=== PATIENT | female | born 1955 | race Caucasian/White ===

== ENCOUNTER → 2016-08-07 | Outpatient (CLI) | payer OTHER ==
[~2016-08-07] MED LIST: CALC500C3 PO; OXYC-57 PO; SIMV40TA2 PO
--- NOTE | 2016-08-07 09:58 | DIAGNOSTIC IMAGING REPORT ---
Limited abdominal ultrasound ABDOMEN FOR HERNIA CLINICAL HISTORY: K46.9 Abdominal hernia Patient is to drink at least 16 oz of water hernia TECHNIQUE: Ultrasound COMPARISON STUDY: None FINDINGS: Medially superior to the umbilicus is a partially reducible fat-containing hernia. Medially adjacent to the umbilicus is a second fat-containing partially reducible hernia. There is no evidence of bowel containment. There is no evidence for bowel incarceration IMPRESSION: Fat-containing anterior abdominal wall hernias superior and immediately adjacent to the umbilicus. These are partially reducible. No evidence of bowel containment Electronically signed by: Rito Wynne M.D. 08/07/2016 9:56 AM Dictated Date/Time: 08/07/2016 9:54 AM
== END | disposition home or self-care (01) ==
LOC: C.ULTR 09:09
PROVIDERS: ATTEND Surgery
DX: K46.9 Unspecified abdominal hernia without obstruction or gangrene (principal)

== ENCOUNTER → 2016-09-05 | Outpatient (CLI) | payer OTHER ==
--- NOTE | 2016-09-05 15:19 | MAMMOGRAPHY REPORT ---
BILATERAL DIGITAL SCREENING MAMMOGRAM WITH CAD: 09/05/2016 CLINICAL HISTORY: Routine screening. Patient has no complaints. TECHNIQUE: Current study was also evaluated with a Computer Aided Detection (CAD) system. Bilatera l CC and MLO views were obtained. COMPARISON: Comparison is made to exams dated: 09/04/2015 mammogram - [facility], 08/15/2014 mammogram - [facility], 07/21/2013 mammogram, 06/29/2012 mammogram, 06/26/2011 mammo gram, and 06/07/2010 mammogram - [facility]. BREAST COMPOSITION: There are scattered areas of fibroglandular density in both breasts. FINDINGS: No suspicious masses, calcifications, or areas of architectural distortion are noted in e ither breast. There has been no significant interval change compared to prior exams. Left lateral b reast asymmetries are stable compared to prior exams including the 2006 exam. IMPRESSION: ACR BI-RADS CATEGORY 2: BENIGN There is no mammographic evidence of malignancy. A 1 year screening mammogram is recommended. The p atient will receive written notification of the results. Approximately 10% of breast cancers are not detected with mammography. A negative mammographic repor t should not delay biopsy if a clinically suggestive mass is present. Rosaura Vital M.D. ah/:09/05/2016 12:34:00 Carcass Washer: Lucinda FITZGERALD(R)(M), [facility] letter sent: Normal 1/2 BI-RADS Code: ACR BI-RADS Category 2: Benign
== END | disposition home or self-care (01) ==
LOC: C.MAMM 09:45
PROVIDERS: ATTEND Family Medicine
DX: Z12.31 Encounter for screening mammogram for malignant neoplasm of breast (principal)

== ENCOUNTER → 2016-12-18 | Day surgery (SDC) | payer OTHER ==
[2016-12-04 09:38] VITALS: BMI 39.0
[2016-12-04 09:46] LABS: HEMATOCRIT 41.1 % (37-47); MEAN CELL VOLUME 83.4 fL (80-100); MEAN CORPUSCULAR HEMOGLOBIN 27.4 pg (25-34); MEAN CORPUSCULAR HGB CONC 32.8 g/dl (32-36); MEAN PLATELET VOLUME 10.6 fL (7.4-10.4); PLATELET COUNT 218 K/uL (130-400); RED BLOOD COUNT 4.93 M/uL (4.2-5.4); WHITE BLOOD COUNT 4.61 K/uL (4.8-10.8)
[2016-12-04 10:04] LABS: BASO % 0.7 %; BASO ABS # 0.03 K/uL (0-0.2); COMPLETE YES; EOS % 4.1 %; LYMPH % 52.9 %; LYMPH ABS # 2.44 K/uL (1.2-3.4); NEUT % 34.3 %
--- NOTE | 2016-12-04 10:15 | PAT Medication Instructions ---
Service Date Dec 04, 2016. Current Home Medication List Calcium Carbonate (Tums), 1-2 TAB PO PRN Simvastatin (Zocor), 40 MG PO QPM Medication Instructions For Your Scheduled Surgery - Hold the following medications the morning of surgery: Calcium Carbonate (Tums), 1-2 TAB PO PRN - Take the following medications as scheduled the night before surgery: Calcium Carbonate (Tums), 1-2 TAB PO PRN Simvastatin (Zocor), 40 MG PO QPM If you have any questions please call us at [phone] or [phone] or [phone]
--- NOTE | 2016-12-04 10:43 | DIAGNOSTIC IMAGING REPORT ---
CHEST PREADMISSION(PA/LAT) CLINICAL HISTORY: PAT preoperative evaluation COMPARISON STUDY: No previous studies for comparison. FINDINGS: The bones soft tissues and hemidiaphragms are normal. The cardiomediastinal silhouette is normal. The lungs are clear. The pulmonary vasculature is normal. IMPRESSION: Negative chest. Electronically signed by: Rito Wynne M.D. 12/04/2016 10:41 AM Dictated Date/Time: 12/04/2016 10:41 AM
[2016-12-04 11:12] LABS: BUN/CREATININE RATIO 20.6 (10-20); CALCIUM 9.3 mg/dl (8.5-10.1); CREATININE 0.95 mg/dl (0.60-1.20); POTASSIUM 4.1 mmol/L (3.5-5.1)
[~2016-12-18] VITALS: Ht 152.4 cm; Wt 90.5 kg
[~2016-12-18] MED LIST changes: +ATROPINE SULFATE 0.1 MG/ML 5ML SYR IV PRN; +BACITRACIN 50000 UNIT VIAL ONE; +BUPIVACAINE 0.5 % 5 MG/1 ML MPF 30ML VIAL ONE; +DEXAMETHASONE SOD INJ 4 MG/ML VIAL ONE; +EpHEDrine SULFATE INJ 50 MG/ML AMP IV PRN; +FENTANYL CITRATE INJ 50 MCG/1 ML 2 ML VIAL ONE; +GLYCOPYRROLATE INJ 0.2 MG/ML VIAL ONE; +HYDROmorphone INJ 1 MG/ML SYR IV PRN; +LACTATED RINGER'S 1000ML 1,000 ML IV SCH; +LIDOCAINE HCL 2% 2 ML VIAL (20MG/ML) ONE; +MIDAZOLAM HCL 1 MG/ML 2ML VIAL ONE; +MoRPHine SULFATE 2 MG/ML CARP IV PRN; +NEOSTIGMINE METHYLSULFATE 5 MG/5 ML SYR ONE; +ONDANSETRON INJ 2 MG/ML 2 ML VIAL IV PRN; +ONDANSETRON INJ 2 MG/ML 2 ML VIAL ONE; +OXYCODONE/ACETAMINOPHEN 5-325 TAB ONE; +OXYCODONE/ACETAMINOPHEN 5-325 TAB PO PRN; +PROMETHAZINE HCL INJ 12.5 MG in SODIUM CHLORIDE 0.9% 50ML 50 ML IV PRN; +PROPOFOL IV EMULSION 10 MG/ML 20 ML VIAL IV ONE; +ROCURONIUM BROMIDE 10 MG/ML 5 ML VIAL ONE; +SCOPOLAMINE 1.5 MG TDSY TD ONE
[2016-12-18 05:54] VITALS: BP 126/75; PULSE 73; TEMP 36.7; O2SAT 95; Ht 152.4 cm; Wt 90.5 kg
--- NOTE | 2016-12-18 06:31 | History & Physical Bridge Note ---
H&P Re-Evaluation Bridge Note: I have examined the patient, reviewed the History & Physical and in the interval since the performance of the History & Physical I have noted the following changes of clinical significance: No changes noted pt marked, all questions answered, family at bedside
--- NOTE | 2016-12-18 08:23 | [facility] Operative Report ---
Operative Report Operative Date Dec 18, 2016. Pre-Operative Diagnosis ventral hernia Post-Operative Diagnosis Same multiple (at least) incarcerated Procedure(s) Performed Laparoscopic Repair of Incarcerated Multiple Ventral Hernias with Surgimesh Surgeon Dr Robins Lidder Surgeon(s) Mike Bran PA-C Estimated Blood Loss 5ml Findings multiple defects ventral hernias (at least 4) spreading of area of bear 8 cm Specimens none Indications supraumbilical pain and bulge consistent with ventral hernia Description of Procedure or summary dictated confirmation number ([id number]) I attest to the content of the Intraoperative Record and any orders documented therein. Any exceptions are noted below.
--- NOTE | 2016-12-18 08:30 | Discharge Instructions ---
Discharge Instructions Date of Service Dec 18, 2016. Visit Reason for Visit: Abdominal Hernia Discharge Discharge Diagnosis / Problem: laparoscopic hernia repair Discharge Goals Goal(s): Decrease discomfort Activity Recommendations Activity Limitations: as noted below Lifting Limitations: no more than 10 pounds Shower/Bathe: tomorrow Driving or Machine Use: resume 3 days after discharge (if not taking Percocet) Anesthesia . Post Anesthesia Instructions: If you have had General Anesthesia or IV Sedation: * Do not drive today. * Resume driving when surgeon permits. * Do not make important decisions or sign legal documents today. * Call surgeon for: 1. Temperature elevations greater than 101 degrees F. 2. Uncontrollable pain. 3. Excessive bleeding. 4. Persistent nausea and vomiting. 5. Medication intolerance (nausea, vomiting or rash). * For nausea and vomiting use only clear liquids such as: tea, soda, bouillon until nausea subsides, then gradually increase diet as tolerated. * If you have any concerns or questions, call your surgeon's office. If physician is unavailable and it is an emergency, call 911 or go to the nearest emergency room. . Instructions / Follow-Up Instructions / Follow-Up Dr. Robins in 1 week, call [phone] if you do not already have an appt or if you have any questions You may take ibuprofen (600 mg) between Percocet, do not take Tylenol Diet Recommendations Recommended Home Diet: no limitations Procedures Procedures Performed: Laparoscopic Repair of Incarcerated Multiple Ventral Hernias with Surgimesh Pending Studies Studies pending at discharge: no Medical Emergencies . Who to Call and When: Medical Emergencies: If at any time you feel your situation is an emergency, please call 911 immediately. . Non-Emergent Contact Non-Emergency issues call your: Surgeon Call Non-Emergent contact if: you have a fever, temperature is above 101.5, your pain is not controlled, wound has increased pain, you have any medication questions . . "Provider Documentation" section prepared by Mike Bran. . [place] Drug Monitoring Program Search Results: no issues identified
[2016-12-18] MEDS: FENTANYL CITRATE INJ 50 MCG/1 ML 2 ML VIAL IV PRN ×2 (08:40→08:47)
--- NOTE | 2016-12-18 08:54 | OPERATIVE REPORT ---
DATE OF OPERATION: 12/18/2016 SURGEON: Dr. Robins. S[employer] CRM DEVELOPER: Mike Bran PA-C. PREOPERATIVE DIAGNOSIS: Supraumbilical bulge consistent with a ventral hernia. POSTOPERATIVE DIAGNOSIS: Incarcerated ventral hernia with at least 4 defects. Total area spanned about 8 cm. PROCEDURE: Laparoscopic repair of multiple ventral hernias with a 15 cm Surgimesh. SUMMARY: The patient was brought into the operating room theater. The abdomen was prepped with Betadine solution and properly draped. The bulge that we were feeling was supraumbilically, therefore, we made a small transverse incision below the umbilicus sufficient enough to place a Veress needle, followed by CO2, followed by 5 mm trocar. Point of entry inspected and no injury identified except there was some preperitoneal insufflation of air, especially around the umbilical ligament. At this point, we placed a 5 mm right upper quadrant port under direct visualization with preemptive local analgesia 1% Xylocaine, left upper quadrant port similarly placed and a left lower quadrant port. Using these ports, we were able then to first identify that the bulge that we were feeling in the supraumbilical area was incarcerated tissue into the hernial sac which we were able to reduce, this was just the omentum. Once we reduced it free inside the abdomen, then we were able to identify and outline the hernia itself. At this point, we took the liberty and dissected out the round ligament to the point that we got into the muscular fascial planes and we were able to then circumferentially free up all the tissue to the point that we were able then to expose musculofascial planes from above the ventral area that we had seen initially all the way down below the 5 mm trocar that we had placed in the umbilical tissue. Of note, at this time we noted that the patient had besides the larger defect the incarcerated tissue. We dissected out and there were at least 3 other hernias, smaller in caliber. These were all ventrally above the umbilicus. At this point, we outlined the defect itself and it probably seemed to be about 8 cm total diameter. We elected to bring a 15 cm piece of Surgimesh that we put through the umbilical port site under direct visualization, controlled pneumoperitoneum with a towel clip. At this point, we elevated it by its nylon suture and centrally located and used a ProTack to circumferentially overlap the area defect quite considerably, probably about 3-[address]. Once we had completed that, I placed 2 more nylon sutures through the mesh and musculofascial plane, one in north-south position. The area appeared quite secured overlapping. We checked individual trocars, point of entry inspected in all these, and no bleeding identified, and we removed. The wounds were closed with 3-0 Monocryl. Steri-Strips applied. The procedure was tolerated well by the patient and was taken to recovery room in good condition. I attest to the content of the Intraoperative Record and any orders documented therein. Any exceptions are noted below. MTDD
--- NOTE | 2016-12-18 09:04 | Medical Student: [facility] ---
Immediate Operative Summary Operative Date Dec 18, 2016. Pre-Operative Diagnosis Ventral hernia Post-Operative Diagnosis Multiple ventral hernias, some incarcerated Procedure(s) Performed Laparascopic repair of multiple incarcerated ventral hernias with placement of Surgimesh Surgeon Sergio Robins MD Travel Rn Surgeon(s) Mike Bran PA-C Estimated Blood Loss 5cc Findings Multiple incarcerated ventral hernias over an 8x10 cm area Specimens none Anesthesia general Complication(s) None Disposition Recovery Room / PACU
--- NOTE | 2016-12-18 09:07 | Anesthesiology Progress Note ---
Anesthesia Post Op Note Date & Time Dec 18, 2016 at 09:06 Vital Signs Pain Intensity: 1 Vital Signs Past 12 Hours Date Time Temp Pulse Resp B/P (MAP) Pulse Ox O2 Delivery O2 Flow Rate FiO2 12/18/16 09:01 36.7 132/75 12/18/16 09:00 66 14 95 12/18/16 09:00 65 14 12/18/16 08:56 113/55 12/18/16 08:55 67 17 94 12/18/16 08:55 68 17 12/18/16 08:52 128/68 12/18/16 08:50 63 12 100 12/18/16 08:50 63 12 12/18/16 08:49 Room Air 12/18/16 08:47 133/62 12/18/16 08:45 63 9 100 12/18/16 08:45 62 9 12/18/16 08:41 144/90 12/18/16 08:40 69 13 100 12/18/16 08:40 70 13 12/18/16 08:36 140/80 12/18/16 08:30 36.7 84 16 145/82 100 Mask 12/18/16 05:54 36.7 73 20 126/75 (92) 95 Room Air Notes Mental Status: alert / awake / arousable, participated in evaluation Pt Amnestic to Procedure: Yes Nausea / Vomiting: adequately controlled Pain: adequately controlled Airway Patency, RR, SpO2: stable & adequate BP & HR: stable & adequate Hydration State: stable & adequate Anesthetic Complications: no major complications apparent
[2016-12-18 09:15] VITALS: BP 117/71; PULSE 58; TEMP 36.4; O2SAT 98
[2016-12-18 09:45] VITALS: BP 118/70; PULSE 61; TEMP 36.5; O2SAT 96
[2016-12-18 10:15] VITALS: BP 118/68; PULSE 66; TEMP 36.3; O2SAT 93
[2016-12-18 10:45] VITALS: BP_SYST 109; BP_SYST 98; BP_DIAS 62; BP_DIAS 63; PULSE 72; PULSE 74; TEMP 36.5; TEMP 36.8; O2SAT 93; O2SAT 95
== END | disposition home or self-care (01) ==
LOC: C.ACU 05:05
PROVIDERS: ATTEND Surgery
DX: K43.9 Ventral hernia without obstruction or gangrene (principal); M19.90 Unspecified osteoarthritis, unspecified site; K21.9 Gastro-esophageal reflux disease without esophagitis; E78.00 Pure hypercholesterolemia, unspecified; Z82.49 Family history of ischemic heart disease and other diseases of the circulatory system; Z82.3 Family history of stroke; E66.9 Obesity, unspecified; E78.5 Hyperlipidemia, unspecified

== ENCOUNTER → 2017-01-05 | Day surgery (SDC) | payer OTHER ==
[2016-12-04 09:54] VITALS: Ht 152.4 cm; Wt 90.5 kg
[~2017-01-05] VITALS: Ht 152.4 cm; Wt 90.5 kg
[~2017-01-05] MED LIST changes: +500ML BSS 0.3ML EPI 1:1000PF IRRIG ONE; +ACETAMINOPHEN 325 MG TAB PO PRN; +AMVISC PLUS 0.8ML SYRINGE INT OCU ONE; -BACITRACIN 50000 UNIT VIAL ONE; +BRIMONIDINE TART 0.2% OP SOLN PER DROP CHARGE ONE; +BSS FLUSH ONE; -BUPIVACAINE 0.5 % 5 MG/1 ML MPF 30ML VIAL ONE; -DEXAMETHASONE SOD INJ 4 MG/ML VIAL ONE; +ENDOCOAT 0.85ML SYRINGE INT OCU ONE; +EpINEphrine INJ 1MG/ML AMP 1 MG/ML AMP ONE; -FENTANYL CITRATE INJ 50 MCG/1 ML 2 ML VIAL ONE; -GLYCOPYRROLATE INJ 0.2 MG/ML VIAL ONE; -HYDROmorphone INJ 1 MG/ML SYR IV PRN; -LACTATED RINGER'S 1000ML 1,000 ML IV SCH; +LACTATED RINGER'S 1000ML 500 ML IV SCH; +LIDOCAINE 4% OP SOLN DROP CHARGE ONE; +LIDOCAINE 4% OP SOLN DROP CHARGE OPL SCH; +LIDOCAINE HCL 1% MPF 2 ML VIAL ONE; -LIDOCAINE HCL 2% 2 ML VIAL (20MG/ML) ONE; +MOXIFLOXACIN OPH SOLN PER DROP CHARGE ONE; -MoRPHine SULFATE 2 MG/ML CARP IV PRN; -NEOSTIGMINE METHYLSULFATE 5 MG/5 ML SYR ONE; -ONDANSETRON INJ 2 MG/ML 2 ML VIAL ONE; -OXYCODONE/ACETAMINOPHEN 5-325 TAB ONE; -OXYCODONE/ACETAMINOPHEN 5-325 TAB PO PRN; +POVIDONE-IODINE OP SOLN 30 ML BTL ONE; -PROMETHAZINE HCL INJ 12.5 MG in SODIUM CHLORIDE 0.9% 50ML 50 ML IV PRN; +PROPARACAINE 0.5% OP SOLN PER DROP CHARGE OPL SCH; -PROPOFOL IV EMULSION 10 MG/ML 20 ML VIAL IV ONE; -ROCURONIUM BROMIDE 10 MG/ML 5 ML VIAL ONE; -SCOPOLAMINE 1.5 MG TDSY TD ONE; +TOBRAMYCIN/DEXAMETHASONE OPH OINT PER APPLN CHARGE ONE
[2017-01-05] MEDS: PHENYLEPHRINE HCL 2.5% OP SOLN PER DROP CHARGE OPL SCH ×2 (08:11→08:18)
[2017-01-05] MEDS: TROPICAMIDE 1% OP SOLN PER DROP CHARGE OPL SCH ×2 (08:13→08:18)
[2017-01-05] MEDS: KETOROLAC 0.5% OP SOLN PER DROP CHARGE OPL SCH ×2 (08:15→08:20)
[2017-01-05] MEDS: MOXIFLOXACIN OPH SOLN PER DROP CHARGE OPL SCH ×2 (08:16→08:28)
[2017-01-05] MEDS: CYCLOPENTOLATE HCL 1% OP SOLN PER DROP CHARGE OPL SCH ×2 (08:16→08:19)
--- NOTE | 2017-01-05 08:30 | History & Physical Bridge - [place] ---
H&P Re-Evaluation Bridge Note: I have examined the patient, reviewed the History & Physical and in the interval since the performance of the History & Physical I have noted the following changes of clinical significance: No changes noted
--- NOTE | 2017-01-05 09:27 | Discharge Instructions-SurgCtr ---
Discharge Instructions Date of Service Jan 05, 2017. Visit Reason for Visit: Cataract Left Eye Discharge Discharge Diagnosis / Problem: cataract left eye Discharge Goals Goal(s): Improve function Activity Recommendations Activity Limitations: per Instructions/Follow-up section Lifting Limitations: no more than 5 pounds Anesthesia . Post Anesthesia Instructions: If you have had General Anesthesia or IV Sedation: * Do not drive today. * Resume driving when surgeon permits. * Do not make important decisions or sign legal documents today. * Call surgeon for: 1. Temperature elevations greater than 101 degrees F. 2. Uncontrollable pain. 3. Excessive bleeding. 4. Persistent nausea and vomiting. 5. Medication intolerance (nausea, vomiting or rash). * For nausea and vomiting use only clear liquids such as: tea, soda, bouillon until nausea subsides, then gradually increase diet as tolerated. * If you have any concerns or questions, call your surgeon's office. If physician is unavailable and it is an emergency, call 911 or go to the nearest emergency room. . Instructions / Follow-Up Instructions / Follow-Up ACTIVITY RECOMMENDATIONS: * Light activities * You may walk outside, read, watch television. * Mild irritation and blurred vision are common for the first few days, redness around the white part of the eye is common. MEDICATIONS: Resume previous medications unless instructed otherwise by your surgeon. Eye drops (today and tomorrow): Cipro - one drop in operative eye every 2 hours while awake Prednisolone 1% - one drop in operative eye every 2 hours while awake Bromfenac - one drop in operative eye once daily SPECIAL CARE INSTRUCTIONS: * If any problems or concerns, please call Dr. Torres's office at . * Keep plastic shield taped over eye to sleep at night. * Keep plastic shield taped over eye except to administer eye drops. * Keep plastic shield on until office visit the following day. FOLLOW UP VISIT: Follow-up with Dr. Torres in the [place] office as scheduled. If not already scheduled, please call the office at . Diet Recommendations Home Diet: resume previous diet Procedures Procedures Performed: Left Cataract Phacoemulsification With Intraocular Lens Implant, Anterior Vitrectomy Pending Studies Studies pending at discharge: no Medical Emergencies . Who to Call and When: Medical Emergencies: If at any time you feel your situation is an emergency, please call 911 immediately. . Non-Emergent Contact Non-Emergency issues call your: Concrete Plant Laborer . . "Provider Documentation" section prepared by Brendan Torres. .
[2017-01-05 09:28] VITALS: TEMP 36.6
--- NOTE | 2017-01-05 09:31 | [facility] Operative Report ---
Operative Report Operative Date Jan 05, 2017. Pre-Operative Diagnosis Left Eye Cataract Post-Operative Diagnosis same Procedure(s) Performed Left Cataract Phacoemulsification With Intraocular Lens Implant, Anterior Vitrectomy Surgeon Dr. Carlita Torres Pass Worker Surgeon(s) 0 Estimated Blood Loss 0 Findings cataract and posterior capsular rent left eye Fluids (cc crystalloids) see anesthesia record Specimens none Drains none Anesthesia local with sedation Complication(s) None Disposition Recovery Room / PACU Implants LI61ao 20.5 Indications decreased vision left eye Description of Procedure After informed consent was obtained in the holding area the patient was wheeled back to the operating room where cardiac monitoring leads and oxygen by nasal cannula was administered by Anesthesia. Gentle IV sedation was given, and the patient's left eye was prepped and draped in usual sterile fashion. A wire lid speculum was placed into the left eye and the operating microscope was swung into position. Using 0.12 forceps and a Supersharp blade a paracentesis port was made 3 o'clock hours away from the 3 o'clock position of the patient's left eye. 1% non-preserved Lidocaine was then injected into the anterior chamber for anesthesia. A 2.0 mm keratotome blade was then used to make a shelved clear corneal incision at the 3 o'clock position of the left eye. Amvisc was injected into the anterior chamber and a cystotome and Utrata forceps were used to perform a curvilinear capsulorrhexis. BSS on a hydrodissection cannula was used to hydrodissect the lens nucleus away from the capsular bag. The phacoemulsification handpiece was then used in a stop and chop fashion to remove the lens nucleus. At this time a posterior capsular defect was noted. An anterior vitrectomy was done. Amvisc was injected into the capsular bag, sulcus and anterior chamber and a [employer]ch [employer] Lomb LI61AO 20.5 Diopter intraocular lens was injected into the sulcus with the optic captured by the anterior capsular rim. Irrigation and aspiration handpiece was used to remove the residual viscoelastic material. The wounds were hydrated and noted to be watertight. The wire lid speculum was removed from the eye. Vigamox, Brimonidine, and TobraDex ointment were placed on the eye and it was shielded. It should be noted that EndoCoat was used extensively during the case to protect the cornea endothelium. DISPOSITION: The patient tolerated the procedure well and was wheeled to the post anesthesia care unit in stable condition. I attest to the content of the Intraoperative Record and any orders documented therein. Any exceptions are noted below. I attest to the content of the Intraoperative Record and any orders documented therein. Any exceptions are noted below.
--- NOTE | 2017-01-05 09:45 | Anesthesia Progress Nt - [facility] ---
Anesthesia Post Op Note Date & Time Jan 05, 2017 at 09:45 Vital Signs Pain Intensity: 0 Vital Signs Past 12 Hours Date Time Temp Pulse Resp B/P (MAP) Pulse Ox O2 Delivery O2 Flow Rate FiO2 01/05/17 09:28 36.6 81 16 144/82 (102) 95 Room Air 01/05/17 08:00 36.9 83 18 124/85 (98) 93 Room Air Notes Mental Status: alert / awake / arousable, participated in evaluation Pt Amnestic to Procedure: Yes Nausea / Vomiting: adequately controlled Pain: adequately controlled Airway Patency, RR, SpO2: stable & adequate BP & HR: stable & adequate Hydration State: stable & adequate Anesthetic Complications: no major complications apparent
[2017-01-05 09:52] VITALS: BP 110/78; PULSE 70; O2SAT 97
== END | disposition home or self-care (01) ==
LOC: X.SURG 07:55
PROVIDERS: ATTEND Ophthalmology
DX: H25.12 Age-related nuclear cataract, left eye (principal); E78.00 Pure hypercholesterolemia, unspecified; K31.9 Disease of stomach and duodenum, unspecified

== ENCOUNTER → 2017-04-30 | Outpatient (CLI) | payer OTHER ==
[~2017-04-30] MED LIST changes: -500ML BSS 0.3ML EPI 1:1000PF IRRIG ONE; -ACETAMINOPHEN 325 MG TAB PO PRN; -AMVISC PLUS 0.8ML SYRINGE INT OCU ONE; -ATROPINE SULFATE 0.1 MG/ML 5ML SYR IV PRN; -BRIMONIDINE TART 0.2% OP SOLN PER DROP CHARGE ONE; -BSS FLUSH ONE; -ENDOCOAT 0.85ML SYRINGE INT OCU ONE; -EpHEDrine SULFATE INJ 50 MG/ML AMP IV PRN; -EpINEphrine INJ 1MG/ML AMP 1 MG/ML AMP ONE; -LACTATED RINGER'S 1000ML 500 ML IV SCH; -LIDOCAINE 4% OP SOLN DROP CHARGE ONE; -LIDOCAINE 4% OP SOLN DROP CHARGE OPL SCH; -LIDOCAINE HCL 1% MPF 2 ML VIAL ONE; -MIDAZOLAM HCL 1 MG/ML 2ML VIAL ONE; -MOXIFLOXACIN OPH SOLN PER DROP CHARGE ONE; -ONDANSETRON INJ 2 MG/ML 2 ML VIAL IV PRN; -OXYC-57 PO; -POVIDONE-IODINE OP SOLN 30 ML BTL ONE; -PROPARACAINE 0.5% OP SOLN PER DROP CHARGE OPL SCH; -TOBRAMYCIN/DEXAMETHASONE OPH OINT PER APPLN CHARGE ONE
== END | disposition home or self-care (01) ==
LOC: C.PAPS 10:18
PROVIDERS: ATTEND Obstetrics & Gynecology
DX: Z12.4 Encounter for screening for malignant neoplasm of cervix (principal)

== ENCOUNTER → 2017-08-19 | Outpatient (CLI) | payer OTHER ==
--- NOTE | 2017-08-19 10:28 | DIAGNOSTIC IMAGING REPORT ---
L EXTREMITY NONVASCULAR LIMITED CLINICAL HISTORY: 62 years-old Female presenting with LLE LESION. TECHNIQUE: Real-time grayscale Doppler ultrasound imaging of the left lateral distal thigh was performed for a focused evaluation at the site of clinical concern. Color Doppler ultrasound imaging was also performed. COMPARISON: None. FINDINGS: At the site of clinical interest at the palpable bulge in the left anterolateral distal thigh, no sonographic abnormality. No fluid or inflammatory change. Normal subcutaneous fat. IMPRESSION: 1. No sonographic abnormality. This suggests the presence of a lipoma, which is poorly differentiated from surrounding subcutaneous fat. Electronically signed by: Juan Vences M.D. 08/19/2017 10:26 AM Dictated Date/Time: 08/19/2017 10:25 AM
== END | disposition home or self-care (01) ==
LOC: C.ULTR 09:59
PROVIDERS: ATTEND Family Medicine
DX: R22.42 Localized swelling, mass and lump, left lower limb (principal)

== ENCOUNTER → 2017-09-07 | Outpatient (CLI) | payer OTHER ==
[~2017-09-07] MED LIST changes: +MECL1TAB42 PO; +PRT/20 PO; +SIMV20TA5 PO
--- NOTE | 2017-09-08 07:46 | MAMMOGRAPHY REPORT ---
BILATERAL DIGITAL SCREENING MAMMOGRAM TOMOSYNTHESIS WITH CAD: 09/07/2017 CLINICAL HISTORY: Routine screening. Patient has no complaints. TECHNIQUE: Breast tomosynthesis in addition to standard 2D mammography was performed. Current study was also evaluated with a Computer Aided Detection (CAD) system. COMPARISON: Comparison is made to exams dated: 09/05/2016 mammogram, 09/04/2015 mammogram - [facility], 08/15/2014 mammogram - [facility], 07/21/2013 mammogram, 06/29/2012 [facility] [place], and 06/26/2011 mammogram - [facility]. BREAST COMPOSITION: There are scattered areas of fibroglandular density in both breasts. FINDINGS: No new suspicious mass, architectural distortion or cluster of microcalcifications is seen . A focal asymmetry in the upper outer middle one third of the left breast appears stable dating evette k to at least 2007, therefore likely benign. IMPRESSION: ACR BI-RADS CATEGORY 1: NEGATIVE There is no mammographic evidence of malignancy. A 1 year screening mammogram is recommended. The pa tient will receive written notification of the results. Approximately 10% of breast cancers are not detected with mammography. A negative mammographic report should not delay biopsy if a clinically suggestive mass is present. Sharmila Mcmullen M.D. ay/:09/07/2017 15:46:32 Stereo Equipment Repairer: Janelle FITZGERALD(Aydin)(Alok)(BD), [facility] letter sent: Normal 1/2 BI-RADS Code: ACR BI-RADS Category 1: Negative
== END | disposition home or self-care (01) ==
LOC: C.MAMM 10:20
PROVIDERS: ATTEND Family Medicine
DX: Z12.31 Encounter for screening mammogram for malignant neoplasm of breast (principal)

== ENCOUNTER 2017-09-13 12:15 | Emergency (ER) | payer OTHER ==
[~2017-09-13] VITALS: Ht 154.9 cm; Wt 91.4 kg
[~2017-09-13 12:15] MED LIST changes: -MECL1TAB42 PO; -PRT/20 PO; -SIMV20TA5 PO
[2017-09-13] MEDS ORDERED: LORAZEPAM 2 MG/ML 1 ML VIAL IV STA ×4 (12:42→16:48)
--- NOTE | 2017-09-13 12:49 | EMERGENCY ROOM VISIT NOTE ---
History Report prepared by Carla: Corey Joshi Under the Supervision of: Dr. Roshan Mcconnell M.D. First contact with patient: 12:31 Chief Complaint: DIZZY Stated Complaint: DIZZY,PRESSURE HEAD,PAIN HEAD, BLURRY VISION History of Present Illness The patient is a 62 year old female who presents to the Emergency Room with complaints of constant, severe dizziness beginning 5 weeks ago. The patient reports that she is unable to hold her head up without support. She notes seeing her family doctor 3 times in the past 5 weeks. The patient states that she took meclizine for 10 days, but did not feel any relief from her symptoms. She also reports scheduling an MRI, but could not follow through as she is very anxious and claustrophobic. The patient states that her vision is more blurry than normal. She also reports neck pain, left sided head pain, nausea, and neck stiffness beginning 1 day ago. The patient states that her symptoms are worsened by head movement, and partially alleviated by holding her head strait. She notes experiencing 1 spinning episode which was propagated by moving her head too fast. She denies experiencing her present symptoms in the past. The patient denies experiencing any,rashes, exposure to ticks, numbness or weakness in her hands and legs, chest pain, shortness of breath, fever, ear pain/ringing , or joint pain. The patient notes taking simvastatin and Protonix regularly. Source of History: patient, sibling (sister) Onset: 5 weeks ago. Position: head, neck Symptom Intensity: severe Quality: other (dizziness) Timing: constant Modifying Factors (Worsening): movement Modifying Factors (Relieving): other (Holding head strait ) Associated Symptoms: + neck pain, + nausea, No fevers, No SOB, No weakness, No numbness, No rash Note: Associated Symptoms: blurry vision, left sided head pain, neck stiffness Denies: Ear pain/ringing, joint pain. Review of Systems As above. All other systems reviewed were negative unless otherwise stated in history. At least 10 were reviewed Past Medical & Surgical Old medical records were reviewed. Nurse's notes were reviewed and I agree with. Old medical records were reviewed. Nurse's notes were reviewed and I agree with. Family History Patient reports no known family medical history. Social History Smoking Status: Never Smoker Drug Use: none Housing Status: lives with family Current/Historical Medications Scheduled Pantoprazole (Protonix), 20 MG PO DAILY Simvastatin (Zocor), 20 MG PO QPM Scheduled PRN Meclizine Hcl (Meclizine Hcl), 1 TAB PO TID PRN for Dizziness or Vertigo Allergies Coded Allergies: Penicillins (Verified Allergy, Unknown, UNKNOWN, 09/13/17) Physical Exam Vital Signs Date Time Temp Pulse Resp B/P (MAP) Pulse Ox O2 Delivery O2 Flow Rate FiO2 09/13/17 21:20 137/89 09/13/17 20:18 Room Air 09/13/17 20:15 147/82 09/13/17 19:04 82 21 149/82 96 Room Air 09/13/17 17:41 93 20 114/86 93 Room Air 09/13/17 16:28 83 16 118/85 97 Room Air 09/13/17 15:28 81 13 132/81 99 Room Air 09/13/17 14:25 85 16 122/78 94 Room Air 09/13/17 13:29 78 17 129/82 98 Room Air 09/13/17 13:29 75 09/13/17 12:23 36.7 86 17 140/90 96 Room Air Physical Exam General: Mildly ill but non toxic middle aged female.Symptoms are worsened when she moves her head. HEENT: Normal cephalic atraumatic. Pupils are equal round and reactive to light. Normal tympanic membranes. Extraocular movements are intact. Oropharynx is pink with moist mucous membranes. No swelling of the mouth lips or tongue. Her right TM is normal. The left TM is obscured by cerumen Neck: Supple with a midline trachea. No meningeal signs or stiffness, no JVD or bruits. No Stridor. Chest: Clear to auscultation bilaterally. No wheezes or rhonchi. No increased work of breathing. Heart: regular rate and rhythm. Abdomen: Soft nontender, nondistended without rebound guarding or rigidity. Extremities: No cyanosis clubbing or edema. No calf tenderness or assymetry Spine/Back. Non tender to palpation. No CVA tenderness Skin: Good turgor without rashes. Neurologic exam: Cranial nerves two through 12 are intact. Motor and sensation are intact and symmetrical throughout. FInger-nose intact. No pronator drift. Medical Decision & Procedures ER Provider Diagnostic Interpretation: Radiology results as stated below per my review and radiologist interpretation: HEAD WITHOUT CONTRAST (CT) CT DOSE: 569.73 mGy.cm HISTORY: Mental status change dizzy and post headache TECHNIQUE: Multiaxial CT images of the head were performed without the use of intravenous contrast. A dose lowering technique was utilized adhering to the principles of ALARA. Comparison: None. Findings: Mucous retention cyst posterior right maxillary sinus. Sinuses otherwise are clear. The calvarium and skull base are intact. The ventricles and sulci are within normal limits. There is no mass, hematoma, midline shift, or acute infarct. Impression: Mucous retention cyst posterior right maxillary sinus. Otherwise normal brain. The above report was generated using voice recognition software. It may contain grammatical, syntax or spelling errors. Electronically signed by: Rito Wynne M.D. 09/13/2017 1:43 PM Dictated Date/Time: 09/13/2017 1:42 PM Laboratory Results 09/13/17 12:55 Red Blood Count 5.12, Mean Corpuscular Volume 82.4, Mean Corpuscular Hemoglobin 27.9, Mean Corpuscular Hemoglobin Concent 33.9, Mean Platelet Volume 9.9, Neutrophils (%) (Auto) 41.7, Lymphocytes (%) (Auto) 46.8, Monocytes (%) (Auto) 8.3, Eosinophils (%) (Auto) 2.4, Basophils (%) (Auto) 0.6, Neutrophils # (Auto) 2.28, Lymphocytes # (Auto) 2.55, Monocytes # (Auto) 0.45, Eosinophils # (Auto) 0.13, Basophils # (Auto) 0.03 09/13/17 12:55 Test 09/13/17 12:55 09/13/17 13:02 09/13/17 20:30 White Blood Count 5.45 K/uL (4.8-10.8) Red Blood Count 5.12 M/uL (4.2-5.4) Hemoglobin 14.3 g/dL (12.0-16.0) Hematocrit 42.2 % (37-47) Mean Corpuscular Volume 82.4 fL (80-100) Mean Corpuscular Hemoglobin 27.9 pg (25-34) Mean Corpuscular Hemoglobin Concent 33.9 g/dl (32-36) Platelet Count 250 K/uL (130-400) Mean Platelet Volume 9.9 fL (7.4-10.4) Neutrophils (%) (Auto) 41.7 % Lymphocytes (%) (Auto) 46.8 % Monocytes (%) (Auto) 8.3 % Eosinophils (%) (Auto) 2.4 % Basophils (%) (Auto) 0.6 % Neutrophils # (Auto) 2.28 K/uL (1.4-6.5) Lymphocytes # (Auto) 2.55 K/uL (1.2-3.4) Monocytes # (Auto) 0.45 K/uL (0.11-0.59) Eosinophils # (Auto) 0.13 K/uL (0-0.5) Basophils # (Auto) 0.03 K/uL (0-0.2) RDW Standard Deviation 39.1 fL (36.4-46.3) RDW Coefficient of Variation 12.9 % (11.5-14.5) Immature Granulocyte % (Auto) 0.2 % Immature Granulocyte # (Auto) 0.01 K/uL (0.00-0.02) Erythrocyte Sedimentation Rate 27 mm/hr (0-21) Prothrombin Time 10.4 SECONDS (9.0-12.0) Prothromb Time International Ratio 1.0 (0.9-1.1) Activated Partial Thromboplast Time 26.2 SECONDS (21.0-31.0) Partial Thromboplastin Ratio 1.0 Anion Gap 7.0 mmol/L (3-11) Est Creatinine Clear Calc Drug Dose 58.7 ml/min Estimated GFR () 68.6 Estimated GFR (Non- 59.2 BUN/Creatinine Ratio 14.6 (10-20) Calcium Level 9.4 mg/dl (8.5-10.1) Total Bilirubin 0.5 mg/dl (0.2-1) Direct Bilirubin 0.1 mg/dl (0-0.2) Aspartate Amino Transf (AST/SGOT) 19 U/L (15-37) Alanine Aminotransferase (ALT/SGPT) 24 U/L (12-78) Alkaline Phosphatase 64 U/L (45-117) Total Protein 8.4 gm/dl (6.4-8.2) Albumin 4.0 gm/dl (3.4-5.0) Lipase 141 U/L (73-393) Procalcitonin < 0.05 ng/ml (0-0.5) Lyme Disease IgG Antibody NEG (NEG) Lyme Disease IgM Antibody NEG (NEG) Bedside Troponin I < 0.030 ng/ml (0-0.045) Lactic Acid Level 0.7 mmol/L (0.4-2.0) Troponin I < 0.015 ng/ml (0-0.045) Thyroid Stimulating Hormone (TSH) 1.460 uIu/ml (0.300-4.500) Laboratory studies as stated above per my review. Medications Administered Medications (Trade) Dose Ordered Sig/Chris Route Start Time Stop Time Status Last Admin Dose Admin Lorazepam (Ativan Inj) 1 mg NOW STAT IV 09/13/17 12:42 09/13/17 12:45 DC 09/13/17 12:57 1 MG Lorazepam (Ativan Inj) 1 mg NOW STAT IV 09/13/17 16:18 09/13/17 16:19 DC 09/13/17 16:28 1 MG Lorazepam (Ativan Inj) 0.5 mg NOW STAT IV 09/13/17 16:48 09/13/17 16:49 DC 09/13/17 17:12 0.5 MG Neomycin/ Polymyxin/ Hydrocortisone (Cortisporin Otic Susp) 4 drops NOW ONCE OT 09/13/17 21:30 09/13/17 21:31 DC 09/13/17 21:35 4 DROPS ECG Per My Interpretation Rate (beats per minute): 68 Rhythm: normal sinus Findings: no acute ischemic change, no ectopy Comparison ECG Date: 01/02 Change: no significant change ED Course 1232: Past medical records reviewed. The patient was evaluated in room A11, and a complete history and physical examination were performed. 1242: Ordered Lorazepam 1mg IV. 1417: Ordered Lorazepam 0.5mg IV. I reevaluated the patient. She looks well and is sleepy. She is able to move her head without difficulty. She is willing to try MRI. 1617: I reevaluated the patient. She is minimally sedated right now. I will give her 1mg of Ativan to sedate her for the MRI. 1618: Ordered Ativan Inj 1mg IV. 1647: I reevaluated the patient. She still does not feel sedated enough to undergo the MRI. I will order another dose of Ativan. 1648: Ordered Ativan Inj 0.5mg IV. 1909: I discussed the patient's case with Dr. Fuentes -[facility], He will evaluate the patient for further treatment and care. Medical Decision Differentials include, but are not limited to; Vertigo, intracranial process, electrolyte or metabolic abnormality, infection. This patient comes in as described above. She was placed in room A11. She is here for treatment evaluation of dizziness is been going on for over a month, and she seen her doctor 3 times. She tried to have MRI this week but could not tolerate due to claustrophobia despite having Ativan. She has gotten worse over the last day or so. She also feels much better if she keeps looking straight if she moves her head she gets very dizzy and woozy. She also may have had some headache as well. She looks well on exam. She is afebrile and has had no fevers at home. IV access established was given Ativan 1 mg IV as well as hydration multiple blood testing was obtained as well as a as well as an EKG which does not show any acute ischemic changes. I did a CAT scan of her head. CAT scan of her head was unremarkable. She has no fever or white count to suggest infection. she has no meningeal signs or stiffness. She has no acute electrolyte or metabolic abnormality. Lyme titer was negative. She did receive MRI here it did take additional dosages of IV Ativan which she tolerated well the MRI was unremarkable. I did consult Dr. Cutler to see her in the ER as I thought she may meet criteria for admission. He feels that this is most likely related to the wax in her ear an had our tech irrigate it. She said a large comp around the wax and I removed its manually. She has irritation of the ear canal from the wax and removal. I will put on Cortisporin otic 4 drops 4 times a day. She did talk to case management and she would rather go home than stay as she is concerned about potential charges related observation. I think this is reasonable with close follow-up. She does in fact have an appointment to see an car sealer on Thursday and an ENT specialist on Thursday and recommend follow-up with your doctor this week as well she continues meclizine be careful getting up and down to give another prescription for meclizine. She should return if: Worsening symptoms, fever or chills, any new problems or concerns. She should minimize her salt intake. She was happy to plan and discharged to home. Medication Reconcilliation Current Medication List: was personally reviewed by me Blood Pressure Screening Patient's blood pressure: Normal blood pressure Consults Time Called: 1904 Consulting Physician: Dr. Fuentes -[facility] Returned Call: 1909 I discussed the patient's case [facility], He will evaluate the patient for further treatment and care. Impression Primary Impression: Vertigo Scribe Attestation The scribe's documentation has been prepared under my direction and personally reviewed by me in its entirety. I confirm that the note above accurately reflects all work, treatment, procedures, and medical decision making performed by me. Departure Information Dispostion Being Evaluated By Hospitalist Prescriptions Meclizine Hcl (MECLIZINE HCL) 25 Mg Tab 1 TAB PO TID Y for Dizziness or Vertigo for 10 Days, #30 TAB Prov: Roshan Mcconnell M.D. 09/13/17 Referrals Roshan Ann DO (PCP) Patient Instructions My [facility]
[2017-09-13 13:07] LABS: BASO % 0.6 %; BASO ABS # 0.03 K/uL (0-0.2); EOS % 2.4 %; EOS ABS # 0.13 K/uL (0-0.5); HEMATOCRIT 42.2 % (37-47); HEMOGLOBIN 14.3 g/dL (12.0-16.0); IG# 0.01 K/uL (0.00-0.02); LYMPH % 46.8 %; LYMPH ABS # 2.55 K/uL (1.2-3.4); MEAN CELL VOLUME 82.4 fL (80-100); MEAN CORPUSCULAR HEMOGLOBIN 27.9 pg (25-34); MEAN CORPUSCULAR HGB CONC 33.9 g/dl (32-36); MEAN PLATELET VOLUME 9.9 fL (7.4-10.4); MONO % 8.3 %; MONO ABS # 0.45 K/uL (0.11-0.59); NEUT % 41.7 %; NEUT ABS # 2.28 K/uL (1.4-6.5); PLATELET COUNT 250 K/uL (130-400); RED CELL DISTRIBUTION WIDTH CV 12.9 % (11.5-14.5); RED CELL DISTRIBUTION WIDTH SD 39.1 fL (36.4-46.3); WHITE BLOOD COUNT 5.45 K/uL (4.8-10.8)
[2017-09-13 13:16] LABS: PTT PATIENT 26.2 SECONDS (21.0-31.0)
[2017-09-13 13:20] LABS: CALCIUM 9.4 mg/dl (8.5-10.1); CREATININE 1.01 mg/dl (0.60-1.20)
[2017-09-13 13:23] LABS: TOTAL PROTEIN 8.4 gm/dl (6.4-8.2)
--- NOTE | 2017-09-13 13:45 | DIAGNOSTIC IMAGING REPORT ---
HEAD WITHOUT CONTRAST (CT) CT DOSE: 569.73 mGy.cm HISTORY: Mental status change dizzy and post headache TECHNIQUE: Multiaxial CT images of the head were performed without the use of intravenous contrast. A dose lowering technique was utilized adhering to the principles of ALARA. Comparison: None. Findings: Mucous retention cyst posterior right maxillary sinus. Sinuses otherwise are clear. The calvarium and skull base are intact. The ventricles and sulci are within normal limits. There is no mass, hematoma, midline shift, or acute infarct. Impression: Mucous retention cyst posterior right maxillary sinus. Otherwise normal brain. The above report was generated using voice recognition software. It may contain grammatical, syntax or spelling errors. Electronically signed by: Rito Wynne M.D. 09/13/2017 1:43 PM Dictated Date/Time: 09/13/2017 1:42 PM
[2017-09-13] MEDS ORDERED: SIMV20TA5 PO (14:42)
[2017-09-13] MEDS ORDERED: PRT/20 PO (14:42)
--- NOTE | 2017-09-13 17:40 | DIAGNOSTIC IMAGING REPORT ---
BRAIN COMBO CLINICAL HISTORY: eval for dizziness mental status change COMPARISON STUDY: None TECHNIQUE: Utilizing a 1.5 Shanti magnet and dedicated coil, multiplanar, multiecho imaging of the brain was performed pre and postcontrast administration. IV administration of 9.1 mL of Gadavist contrast was uneventful. FINDINGS: Limited study due to patient motion. By history the patient has been attempted to have the study and successfully at another facility. Diffusion-weighted images are negative for an acute ischemic event. There are findings of mild chronic small vessel change. Internal artery canals are symmetric. The ventricular system is midline. There are findings of mild age-related cerebral atrophy. Postcontrast images are considered negative for significant postcontrast enhancement. Internal auditory canals are symmetric. There is a mucous retention cyst posterior aspect right maxillary sinus. IMPRESSION: 1. Mild chronic small vessel change. 2. Mild age-related cerebral atrophy. 3. Otherwise negative study with no abnormal postcontrast enhancement. 4. Mucous retention cyst posterior right maxillary sinus. The above report was generated using voice recognition software. It may contain grammatical, syntax or spelling errors. Electronically signed by: Rito Wynne M.D. 09/13/2017 5:38 PM Dictated Date/Time: 09/13/2017 5:35 PM
--- NOTE | 2017-09-13 19:40 | DIAGNOSTIC IMAGING REPORT ---
CHEST ONE VIEW PORTABLE CLINICAL HISTORY: dizzzy dyspnea COMPARISON STUDY: 12/04/2016 FINDINGS: The bones soft tissues and hemidiaphragms are normal. The cardiomediastinal silhouette is normal. The lungs are clear. The pulmonary vasculature is normal. IMPRESSION: Negative chest. The above report was generated using voice recognition software. It may contain grammatical, syntax or spelling errors. Electronically signed by: Rito Wynne M.D. 09/13/2017 7:38 PM Dictated Date/Time: 09/13/2017 7:38 PM
[2017-09-13 20:18] VITALS: Ht 154.9 cm; Wt 91.4 kg
[2017-09-13] MEDS ORDERED: MECL1TAB42 PO (21:28)
[2017-09-13] MEDS ORDERED: NEOMYCIN/POLYMYX/HYDROCORT OT SUSP 10 ML BTL OT ONE (21:30)
--- NOTE | 2017-09-13 21:37 | Medical Consult ---
Consultation Date of Consultation: Sep 13, 2017. Attending Physician: Reason for Consultation: Dizziness History of Present Illness 62 yo F with h/o HLD, GERD p/w 5 week history of dizziness, worsening with turning head to the left. Dizziness is described as spinning sensation initially and then more light headedness. Dizziness worse with bending up or bending down or turning head particularly to the left > right. Last night, she also felt associated nausea , headache. She has trouble getting up and walking due to dizziness. NO previous similar symptoms. She went to pcp ( Roshan Puga MD)multiple times since 08/10 and was prescribed initially meclizine, but it gave her no relief. She stopped medication 3 wks ago. Eventually, she was scheduled for MRI 2 days ago but could not complete due to anxiety/ claustrophobia. In the ED she received Ativan .5 mg x2, 1 mg x2. Past Medical/Surgical History Medical Problems: (1) Vertigo Status: Acute Family History Patient reports no known family medical history. Social History Smoking Status: Never Smoker Smokeless Tobacco Use: No Alcohol Use: none Drug Use: none Housing Status: lives with family Allergies Coded Allergies: Penicillins (Verified Allergy, Unknown, UNKNOWN, 09/13/17) Home Medications Reported Home Medications Medications Dose Route/Sig Max Daily Dose Days Date Category Meclizine Hcl 25 Mg Tab 1 Tab PO TID PRN 10 09/13/17 Rx Protonix (Pantoprazole Sodium) 20 Mg Tab 20 Mg PO DAILY 09/13/17 Reported Zocor (Simvastatin) 20 Mg Tab 20 Mg PO QPM 09/13/17 Reported Reported Home Medications Medications Dose Route/Sig Max Daily Dose Days Date Category Meclizine Hcl 25 Mg Tab 1 Tab PO TID PRN 10 09/13/17 Rx Protonix (Pantoprazole Sodium) 20 Mg Tab 20 Mg PO DAILY 09/13/17 Reported Zocor (Simvastatin) 20 Mg Tab 20 Mg PO QPM 09/13/17 Reported Current Inpatient Medications Medications Administered Medications (Trade) Dose Ordered Sig/Chris Route Start Time Stop Time Status Last Admin Dose Admin Lorazepam (Ativan Inj) 1 mg NOW STAT IV 09/13/17 12:42 09/13/17 12:45 DC 09/13/17 12:57 1 MG Lorazepam (Ativan Inj) 1 mg NOW STAT IV 09/13/17 16:18 09/13/17 16:19 DC 09/13/17 16:28 1 MG Lorazepam (Ativan Inj) 0.5 mg NOW STAT IV 09/13/17 16:48 09/13/17 16:49 DC 09/13/17 17:12 0.5 MG Neomycin/ Polymyxin/ Hydrocortisone (Cortisporin Otic Susp) 4 drops NOW ONCE OT 09/13/17 21:30 09/13/17 21:31 DC 09/13/17 21:35 4 DROPS Review of Systems Constitutional: No fever, No chills, No weakness Respiratory: No cough, No shortness of breath Cardiovascular: No chest pain, No edema, No palpitations Abdomen: No pain, No nausea, No vomiting Genitourinary - Female: No dysuria, No urinary frequency, No urinary urgency, No hematuria Neurologic: + vertigo, No weakness, No numbness/tingling Integumentary: No rash, No itch Physical Exam Date Time Temp Pulse Resp B/P (MAP) Pulse Ox O2 Delivery O2 Flow Rate FiO2 09/13/17 21:20 137/89 09/13/17 20:18 Room Air 09/13/17 20:15 147/82 09/13/17 19:04 82 21 149/82 96 Room Air 09/13/17 17:41 93 20 114/86 93 Room Air 09/13/17 16:28 83 16 118/85 97 Room Air 09/13/17 15:28 81 13 132/81 99 Room Air 09/13/17 14:25 85 16 122/78 94 Room Air 09/13/17 13:29 78 17 129/82 98 Room Air 09/13/17 13:29 75 09/13/17 12:23 36.7 86 17 140/90 96 Room Air General Appearance: WD/WN, no apparent distress Head: normocephalic, atraumatic Eyes: PERRL, EOMI, sclerae normal Neck: supple, no adenopathy, thyroid normal, trachea midline Respiratory/Chest: chest non-tender, lungs clear, normal breath sounds, no respiratory distress Cardiovascular: regular rate, rhythm, no edema Abdomen/GI: normal bowel sounds, non tender, soft, no organomegaly Back: normal inspection, normal range of motion Extremities/Musculoskelatal: no calf tenderness, normal capillary refill, no pedal edema Neurologic/Psych: drafter automotive design layout II-XII nml as tested, no motor/sensory deficits, alert, normal mood/affect, normal reflexes, oriented x 3, + pertinent finding (Postive nystagmus with Dixa Hallpike testing, negative finger nose testing) Laboratory Results Last 24 Hours Test 09/13/17 12:55 09/13/17 13:02 09/13/17 20:30 White Blood Count 5.45 K/uL Red Blood Count 5.12 M/uL Hemoglobin 14.3 g/dL Hematocrit 42.2 % Mean Corpuscular Volume 82.4 fL Mean Corpuscular Hemoglobin 27.9 pg Mean Corpuscular Hemoglobin Concent 33.9 g/dl Platelet Count 250 K/uL Mean Platelet Volume 9.9 fL Neutrophils (%) (Auto) 41.7 % Lymphocytes (%) (Auto) 46.8 % Monocytes (%) (Auto) 8.3 % Eosinophils (%) (Auto) 2.4 % Basophils (%) (Auto) 0.6 % Neutrophils # (Auto) 2.28 K/uL Lymphocytes # (Auto) 2.55 K/uL Monocytes # (Auto) 0.45 K/uL Eosinophils # (Auto) 0.13 K/uL Basophils # (Auto) 0.03 K/uL RDW Standard Deviation 39.1 fL RDW Coefficient of Variation 12.9 % Immature Granulocyte % (Auto) 0.2 % Immature Granulocyte # (Auto) 0.01 K/uL Erythrocyte Sedimentation Rate 27 mm/hr Prothrombin Time 10.4 SECONDS Prothromb Time International Ratio 1.0 Activated Partial Thromboplast Time 26.2 SECONDS Partial Thromboplastin Ratio 1.0 Sodium Level 139 mmol/L Potassium Level 4.0 mmol/L Chloride Level 105 mmol/L Carbon Dioxide Level 27 mmol/L Anion Gap 7.0 mmol/L Blood Urea Nitrogen 15 mg/dl Creatinine 1.01 mg/dl Est Creatinine Clear Calc Drug Dose 58.7 ml/min Estimated GFR () 68.6 Estimated GFR (Non- 59.2 BUN/Creatinine Ratio 14.6 Random Glucose 92 mg/dl Calcium Level 9.4 mg/dl Total Bilirubin 0.5 mg/dl Direct Bilirubin 0.1 mg/dl Aspartate Amino Transf (AST/SGOT) 19 U/L Alanine Aminotransferase (ALT/SGPT) 24 U/L Alkaline Phosphatase 64 U/L Total Protein 8.4 gm/dl Albumin 4.0 gm/dl Lipase 141 U/L Procalcitonin < 0.05 ng/ml Lyme Disease IgG Antibody NEG Lyme Disease IgM Antibody NEG Bedside Troponin I < 0.030 ng/ml Lactic Acid Level 0.7 mmol/L Troponin I < 0.015 ng/ml Thyroid Stimulating Hormone (TSH) 1.460 uIu/ml Assessment & Plan 62 yo F p/w in postural dizziness likely secondary to vertigo refractory to Meclizine outpatient treatment Based on reported history of dizziness symptoms consistent with vertigo, previous relief with Epleys maneuver, positive Nystagmus sign with Dennis Lea pike testing, without fevers, tinnitus, hearing loss or focal neurological signs , Benign positional vertigo is highly likely. Patient also had Left ear cerumen impaction on exam, and had left ear irrigations. Based on presentation and exam , Patient does not appear to meet criteria for admission and can be safely discharged. Recommendations on discharge include Cortisporin otic 4 drops bid left ear, meclizine 25 mg po q4prn with close followup to PCP, ENT Attending addendum: I have physically seen this patient, have supervised the medical residents activities, and agree with the H&P unless as otherwise noted. Assessment and Plan: Vertigo-- Has had improvement with Carlos's maneuver in the past. Large cerumen impaction in left ear, with recommendation and completion of ear irrigation procedure while in the ED. Advise Cortisporin otic 4 drops in left ear twice daily. Meclizine 25 mg p.o. every 6 hours as needed. Avoid salt intake. In the outpatient setting could consider addition of HCTZ low-dose if symptoms are persistent after above intervention. Recommend follow-up with PCP/ENT later this week. GERD-- Continue pantoprazole 20 mg p.o. daily. Hyperlipidemia-- Continue simvastatin 20 mg p.o. every evening. Resident Tracking Resident Involvement: Resident Care Provided Care Provided: [facility] Medicine
[2017-09-13 21:55] VITALS: BP 108/89; PULSE 82; TEMP 36.7; O2SAT 96
== END 2017-09-13 21:56 | disposition home or self-care (01) ==
LOC: C.EDB 12:17 → C.EDA 21:56
DX: R42 Dizziness and giddiness (principal); Z88.0 Allergy status to penicillin; H61.22 Impacted cerumen, left ear; K21.9 Gastro-esophageal reflux disease without esophagitis; E78.5 Hyperlipidemia, unspecified; Z79.899 Other long term (current) drug therapy

== ENCOUNTER → 2017-09-30 | Outpatient (CLI) | payer OTHER ==
[~2017-09-30] MED LIST changes: -CALC500C3 PO; +PRT/20 PO; +SIMV20TA5 PO; -SIMV40TA2 PO
[2017-09-30 16:47] LABS: BASO % 0.7 %; BASO ABS # 0.04 K/uL (0-0.2); EOS % 2.6 %; EOS ABS # 0.16 K/uL (0-0.5); HEMATOCRIT 42.6 % (37-47); HEMOGLOBIN 14.5 g/dL (12.0-16.0); IG# 0.01 K/uL (0.00-0.02); LYMPH % 46.2 %; LYMPH ABS # 2.83 K/uL (1.2-3.4); MEAN CELL VOLUME 82.6 fL (80-100); MEAN CORPUSCULAR HEMOGLOBIN 28.1 pg (25-34); MEAN PLATELET VOLUME 10.6 fL (7.4-10.4); MONO % 7.8 %; MONO ABS # 0.48 K/uL (0.11-0.59); NEUT % 42.5 %; PLATELET COUNT 291 K/uL (130-400); RED CELL DISTRIBUTION WIDTH CV 12.9 % (11.5-14.5); RED CELL DISTRIBUTION WIDTH SD 38.4 fL (36.4-46.3); WHITE BLOOD COUNT 6.12 K/uL (4.8-10.8)
== END | disposition home or self-care (01) ==
LOC: C.LABSPEC 16:01
PROVIDERS: ATTEND Family Medicine
DX: H81.49 Vertigo of central origin, unspecified ear (principal); R51 Headache